=== PATIENT | female | born 1970 | race Caucasian/White ===

== ENCOUNTER → 2016-09-24 | Outpatient (CLI) | payer BC ==
[~2016-09-24] MED LIST: BUSPIRONE HCL15 MG PO; IMITREX100 MG PO; VENLAFAXINE HCL75 MG PO; ZONISAMIDE100 MG PO
== END ==
LOC: LAB 10:53
DX: R06.02 Shortness of breath (principal); R91.1 Solitary pulmonary nodule
CPT/HCPCS: 36415; 82565; 84520

== ENCOUNTER → 2016-09-27 | Outpatient (CLI) | payer BC | LOC: CT 11:26 | DX: R91.1 Solitary pulmonary nodule (principal); R06.02 Shortness of breath | CPT/HCPCS: 71260; J7050; Q9962 ==